=== PATIENT | female | born 1980 | race Caucasian/White ===

== ENCOUNTER 2017-06-25 07:59 | Day surgery (SDC) | payer MEDICARE, MEDICAID ==
[2017-06-24 11:30] VITALS: BMI 31.1
[2017-06-25] MEDS ORDERED: Bupivacaine/Epinephrine 0.25% 30 ML VIAL ONE (09:06)
[2017-06-25] MEDS ORDERED: Iothalamate Meglumine 60% 50 ML VIAL FS ONE (09:07)
[2017-06-25] MEDS ORDERED: CEFAZOLIN/Water 2 GM/20 ML SYRINGE ONE (09:16)
[2017-06-25] MEDS ORDERED: Ondansetron HCl/PF 4 MG/2 ML Vial ONE ×2 (09:17→14:35)
[2017-06-25] MEDS ORDERED: Midazolam HCl 2 mg/2 ml Vial ONE (09:17)
[2017-06-25] MEDS ORDERED: Fentanyl 100 MCG/2 ML VIAL ONE ×3 (09:17→11:40)
[2017-06-25] MEDS ORDERED: HYDROmorphone 0.5 MG/0.5 ML SYRINGE ONE (11:39)
--- NOTE | 2017-06-25 12:01 | RAD ---
CHOLANGIOGRAM IN SURGERY: Date: 06/25/17 COMPARISON: None. HISTORY: Laparoscopic cholecystectomy for cholelithiasis. FINDINGS/IMPRESSION: Cholangiogram in surgery was performed. A single limited intraoperative fluoroscopic view was submitt ed for interpretation. Contrast is seen within the cystic duct and common bile duct. An overlying por t obscures a portion of the common bile duct and a filling defect in this location cannot be excluded . No other filling defects are seen. Contrast is seen within the duodenum. POS: DAGOBERTO
[2017-06-25] MEDS ORDERED: Morphine 4 MG/ML VIAL ONE (12:21)
[2017-06-25] MEDS ORDERED: HYDROcodone/Acetaminophen 5/325 mg Tablet ONE (12:22)
[2017-06-25] MEDS ORDERED: PROPOFOL 200 MG/20 ML VIAL ONE (14:35)
[2017-06-25] MEDS ORDERED: Glycopyrrolate 0.2 MG/ML 5 ML SYRINGE ONE (14:35)
[2017-06-25] MEDS ORDERED: Dexamethasone 20 MG/5 ML VIAL ONE (14:35)
[2017-06-25] MEDS ORDERED: Lidocaine 1% PF 5 ML VIAL ONE (14:35)
[2017-06-25] MEDS ORDERED: Ketorolac Tromethamine 30 MG/ML VIAL ONE (14:35)
--- NOTE | 2017-06-26 17:01 | PDOC.OP ---
Operative Note - Operative Note Operative Note: PROCEDURE: Laparoscopic cholecystectomy with intraoperative cholangiogram SURGEON: Katerin Teran M.D. DATE OF PROCEDURE: PREOPERATIVE DIAGNOSIS: Cholelithiasis and cholecystitis, possible choledocholithiasis: POSTOPERATIVE DIAGNOSIS: Cholelithiasis and cholecystitis HISTORY: Patient with biliary colic symptoms and mildly elevated LFTs. Recommendation was made to proceed with laparoscopic cholecystectomy with intraoperative cholangiogram for symptomatic relief. FINDINGS: Distended gallbladder with omental adhesions and a large stone. Normal intraoperative cholangiogram. Very attenuated fascia at the umbilicus. PROCEDURE IN DETAIL: After informed consent was obtained and appropriate preoperative antibiotics were administered, the patient was taken to the operating room and placed in the supine position and general endotracheal anesthesia was administered. The stomach was decompressed with an OG tube and the abdomen was prepped and draped in standard sterile fashion. Local anesthesia was infused to the skin and subcutaneous tissues at the umbilical level. A transverse skin incision was made. Dissection was carried down to the fascia which was found to be very thinned and attenuated. There was a tiny fascial defect which was extended and a 5 mm trocar placed directly into the abdominal cavity under direct vision. Opening pressure was less than 5 and carbon dioxide gas easily insufflated to an intra-abdominal pressure of 15, which the patient tolerated well. The abdominal cavity was carefully examined. There was no evidence of trocar injury. Local anesthesia was infused to the skin and subcutaneous tissues at the epigastric, right upper quadrant, and right lateral abdominal sites and trocars were placed under direct vision of the laparoscope. The fundus of the gallbladder was grasped and retracted superiorly. The gallbladder was very distended and the liver was fatty. There were filmy omental adhesions which appeared acute and were easily stripped down through the avascular plane. The infundibulum was grasped and retracted laterally. The serosa was stripped inferiorly at the level of the neck of the gallbladder exposing the cystic duct and artery which were traced clearly to their insertion in the gallbladder. These were dissected free circumferentially and the cystic duct was clipped at the level of the neck of the gallbladder. The cystic artery was clipped and divided. An incision was made in the cystic duct inferior to the clip and the cystic duct was palpated with no stones palpable. Clear bile was seen to flow from the cystic duct incision. A cholangiogram catheter was introduced and placed into the cystic duct and secured with a clip. A cholangiogram was obtained which showed an adequate length of cystic duct. There was normal filling of the common bile duct with free flow of contrast into the duodenum. There was normal retrograde flow into the common hepatic duct beyond the level of the bifurcation without filling defects. The cholangiogram catheter was removed and the cystic duct clipped below the incision in the cystic duct. The cystic duct was divided between these clips and the previously placed clip. The gallbladder was then dissected free of the gallbladder bed using hook electrocautery. Prior to complete removal of the gallbladder from the gallbladder bed, the area of the cystic duct and artery stumps was examined. The clips were in good position completely across these structures and there was no bleeding and no leakage of bile. The gallbladder was then placed into an EndoCatch bag and drawn out through the epigastric incision. The epigastric trocar was replaced and the operative site easily irrigated to clear. There was no significant bleeding or spillage of bile. The epigastric trocar was removed and the fascia closed under direct laparoscopic vision with a 0 Vicryl suture on a GraNee needle in a figure -of-eight manner with excellent technical result. The right upper quadrant and right lateral abdominal trocars were removed and hemostasis verified. Carbon dioxide gas was allowed to desufflate through the umbilical trocar which was then removed. The umbilical fascia was closed under direct vision with a 0 Vicryl suture on a UR 6 needle with excellent technical result. The skin incisions were closed with 4-0 subcuticular Monocryl sutures and Dermabond dressings were placed. The patient was extubated and taken to the recovery room in good condition. There were no complications. ESTIMATED BLOOD LOSS: Minimal. SPECIMEN : Gallbladder and contents.
== END 2017-06-25 13:45 | disposition home or self-care (01) ==
LOC: SDC 07:59
PROVIDERS: ATTEND Surgery
PROC: 0FT44ZZ Resection of Gallbladder, Percutaneous Endoscopic Approach (ICD-10-PCS; principal; 2017-06-25)
PROC: BF101ZZ Fluoroscopy of Bile Ducts using Low Osmolar Contrast (ICD-10-PCS; 2017-06-25)
DX: K80.12 Calculus of gallbladder with acute and chronic cholecystitis without obstruction (principal); F41.9 Anxiety disorder, unspecified; F31.9 Bipolar disorder, unspecified; Z79.899 Other long term (current) drug therapy
CPT/HCPCS: 47532; 88304; 96374; J1100; J1170; J1610; J1885; J2001; J2250; J2270; J2405; J2704; J3010; Q9961